=== PATIENT | male | born 1950 | race Caucasian/White ===

== ENCOUNTER 2021-09-29 13:46 | Inpatient (IN) ==
[2021-09-29] MEDS ORDERED: Ondansetron 4 mg VIAL 2 MG/ML 2 ml VIAL IV ONE (13:57)
[2021-09-29] MEDS ORDERED: Lactated Ringers 1000 ml BAG 1,000 ML IV ONE ×2 (13:57→14:34)
[2021-09-29] MEDS ORDERED: Morphine 4 MG/ML VIAL (1 ml) IV ONE ×2 (13:58→15:46)
[2021-09-29 14:13] LABS: ABS Lymphocytes 0.7 10^3/ul (1.0-4.8); ABS Neutrophils 10.8 10^3/ul (1.5-7.7); Eosinophil % 0.4 %; Hematocrit 41 % (42-52); Hemoglobin 13.8 g/dL (14.0-18.0); Lymphocyte % 5.5 %; Mean Corpuscular HGB Conc 34 g/dL (31-36); Mean Corpuscular Hemoglobin 32 pg (27-31); Mean Corpuscular Volume 94 fL (80-94); Mean Platelet Volume 8.6 fL (7.4-10.4); Platelet Count 272 10^3/uL (150-450); Red Blood Count 4.32 10^6 /uL (4.18-5.48); Red Cell Distribution Width 14 % (10-15); White Blood Count 12.5 10^3/uL (3.5-10.8)
[2021-09-29 15:03] LABS: INR 1.21 (0.86-1.15)
[2021-09-29 15:10] LABS: Urine Appearance Cloudy; Urine Bilirubin Negative (Negative); Urine Blood Negative (Negative); Urine Color Yellow; Urine Glucose 1+(50 mg/dL) (Negative); Urine Ketones 1+ (Negative); Urine Nitrite Negative (Negative); Urine Protein Negative (Negative); Urine Specific Gravity 1.013 (1.002-1.030); Urine Urobilinogen Negative (Negative)
[2021-09-29 15:24] LABS: Albumin 4.4 g/dL (3.2-5.2); Albumin/Globulin Ratio 1.6 (1-3); C Reactive Protein 31.24 mg/L (<8.01); Calcium 10.3 mg/dL (8.6-10.3); Globulin 2.8 g/dL (2-4); Magnesium 1.9 mg/dL (1.9-2.7); Potassium 3.6 mmol/L (3.5-5.0); Total Bilirubin 0.9 mg/dL (0.2-1.0); Total Protein 7.2 g/dL (6.4-8.9); eGFR CKD-EPI 92.5 (>60)
[2021-09-29 15:42] LABS: High Sensitivity Troponin 1 Hr 17 pg/mL (<20)
[2021-09-29] MEDS ORDERED: Midazolam 2 mg/2 ml VIAL 1 mg/ml 2 ml VIAL (2 mg) ONE (16:20)
[2021-09-29] MEDS ORDERED: Rocuronium 50 mg VIAL 10 mg/ml 5 ml VIAL (50 mg) ONE ×2 (16:20→19:28)
[2021-09-29] MEDS ORDERED: fentaNYL 100 mcg/2 ml 50 MCG/ML VIAL ONE ×5 (16:20→20:40)
[2021-09-29] MEDS ORDERED: Succinylcholine 200 mg VIAL 20 mg/ml 10 ml VIAL (200 mg) ONE (16:20)
[2021-09-29] MEDS ORDERED: Phenylephrine IV 10 MG/ML 1 ml VIAL ONE (16:21)
[2021-09-29] MEDS ORDERED: Etomidate 20 mg/10 ml 2 MG/ML 10 ml VIAL ONE (16:27)
[2021-09-29] MEDS ORDERED: Lidocaine 1% MPF 5 ML VIAL ONE (16:31)
[2021-09-29] MEDS ORDERED: Bupivacaine 0.25% w/EPI 10 ML SDV ONE (16:51)
[2021-09-29] MEDS ORDERED: Sodium Citrate/Citric Acid LIQ 15 ML UDC ONE (17:10)
[2021-09-29] MEDS ORDERED: ceFOXitin 2 GM IVPREMIX 2 GM/50 ML BAG ONE (17:14)
[2021-09-29] MEDS ORDERED: Acetaminophen IV 1 GM/100ML 100 ML IV ONE (17:16)
[2021-09-29] MEDS ORDERED: fentaNYL 100 mcg/2 ml 50 MCG/ML VIAL IV PRN (17:16)
[2021-09-29] MEDS ORDERED: Morphine 4 MG/ML VIAL (1 ml) IV PRN ×2 (17:16→19:03)
[2021-09-29] MEDS ORDERED: Naloxone 0.4 mg VIAL 0.4 mg/ml 1 ml VIAL IV PRN ×2 (17:16→19:03)
[2021-09-29] MEDS ORDERED: Prochlorperazine 5 mg/ml 2 ml VIAL (10 mg) IV PRN ×2 (17:16→19:03)
[2021-09-29] MEDS ORDERED: Prothrombin Complex Conc. DOSE = Units Factor IX (nine) IV SLOW PU ONE ×2 (17:45→18:45)
[2021-09-29] MEDS ORDERED: Propofol 10 MG/ML 20 ML BTL ONE (18:07)
[2021-09-29] MEDS ORDERED: Metoprolol Tartrate 5 mg VIAL 5 ml VIAL (1 mg/ml) ONE (19:22)
[2021-09-29] MEDS ORDERED: Ondansetron 4 mg VIAL 2 MG/ML 2 ml VIAL ONE (19:35)
[2021-09-29] MEDS ORDERED: Sugammadex 500 MG/5 ML 5 ml VIAL IV PUSH ONE (19:37)
[2021-09-29] MEDS ORDERED: Ondansetron 4 mg VIAL 2 MG/ML 2 ml VIAL IV PRN (19:52)
[2021-09-29] MEDS ORDERED: Naloxone 0.4 mg VIAL 0.4 mg/ml 1 ml VIAL IV PUSH PRN (20:07)
[2021-09-29] MEDS: fentaNYL 100 mcg/2 ml 50 MCG/ML VIAL IV PRN ×4 (20:23→20:52)
[2021-09-29] MEDS ORDERED: HYDROmorphone PCA 20 MG/20 ML PCA.SYRING PCA SCH (21:00)
[2021-09-29] MEDS ORDERED: ceFOXitin 2 GM IVPREMIX 2 GM/50 ML BAG IVPB SCH (21:00)
[2021-09-29 22:53] LABS: Hematocrit 35 % (42-52); Hemoglobin 11.7 g/dL (14.0-18.0)
[2021-09-29] MEDS: Lactated Ringers 1000 ml BAG 1,000 ML IV SCH (22:53)
[2021-09-29 22:58] LABS: Urine Appearance Cloudy; Urine Bilirubin Negative (Negative); Urine Blood 3+ (Negative); Urine Color Amber; Urine Glucose 1+(50 mg/dL) (Negative); Urine Ketones Trace (Negative); Urine Nitrite Negative (Negative); Urine Protein 2+(100 mg/dL) (Negative); Urine Specific Gravity 1.025 (1.002-1.030); Urine Urobilinogen Negative (Negative)
[2021-09-29 23:09] LABS: Urine Bacteria Absent (Absent); Urine Red Blood Cell 3+(>10/hpf) (Absent); Urine White Blood Cell Trace(0-5/hpf) (Absent)
[2021-09-29 23:20] LABS: Calcium 8.5 mg/dL (8.6-10.3); Magnesium 1.6 mg/dL (1.9-2.7); Potassium 4.4 mmol/L (3.5-5.0); eGFR CKD-EPI 96.7 (>60)
[2021-09-30] MEDS ORDERED: Magnesium Sulf 4 GM/100 ML IV 4,000 MG/100 ML BAG IVPB ONE (02:24)
[2021-09-30] MEDS: ceFOXitin 2 GM IVPREMIX 2 GM/50 ML BAG IVPB SCH ×3 (03:28→18:40)
[2021-09-30] MEDS ORDERED: Midazolam 5 mg/5 ml VIAL 1 mg/ml 5 ml VIAL (5 mg) IV SLOW PU ONE (03:32)
[2021-09-30] MEDS ORDERED: fentaNYL 100 mcg/2 ml 50 MCG/ML VIAL IV SLOW PU ONE (03:33)
[2021-09-30 06:06] LABS: ABS Eosinophils 0.1 10^3/ul (0-0.6); ABS Lymphocytes 0.8 10^3/ul (1.0-4.8); ABS Monocytes 1.3 10^3/ul (0-0.8); ABS Neutrophils 9.8 10^3/ul (1.5-7.7); Eosinophil % 0.9 %; Hematocrit 31 % (42-52); Hemoglobin 10.4 g/dL (14.0-18.0); Lymphocyte % 6.6 %; Mean Corpuscular HGB Conc 34 g/dL (31-36); Mean Corpuscular Hemoglobin 32 pg (27-31); Mean Corpuscular Volume 95 fL (80-94); Mean Platelet Volume 8.6 fL (7.4-10.4); Platelet Count 196 10^3/uL (150-450); Red Blood Count 3.23 10^6 /uL (4.18-5.48); Red Cell Distribution Width 14 % (10-15)
[2021-09-30 06:51] LABS: Calcium 8.2 mg/dL (8.6-10.3); Potassium 4.1 mmol/L (3.5-5.0); eGFR CKD-EPI 92.8 (>60)
[2021-09-30] MEDS: Pantoprazole VIAL 40 MG VIAL IV SCH (08:20)
[2021-09-30] MEDS: Lactated Ringers 1000 ml BAG 1,000 ML IV SCH ×2 (09:44→19:39)
[2021-10-01] MEDS ORDERED: Lactated Ringers 1000 ml BAG 1,000 ML IV SCH (02:51)
[2021-10-01 06:22] LABS: ABS Eosinophils 0.1 10^3/ul (0-0.6); ABS Lymphocytes 0.6 10^3/ul (1.0-4.8); ABS Monocytes 1.2 10^3/ul (0-0.8); ABS Neutrophils 9.2 10^3/ul (1.5-7.7); Eosinophil % 0.6 %; Hematocrit 30 % (42-52); Hemoglobin 10.3 g/dL (14.0-18.0); Lymphocyte % 5.3 %; Mean Corpuscular HGB Conc 34 g/dL (31-36); Mean Corpuscular Hemoglobin 32 pg (27-31); Mean Corpuscular Volume 94 fL (80-94); Mean Platelet Volume 8.7 fL (7.4-10.4); Platelet Count 201 10^3/uL (150-450); Red Blood Count 3.21 10^6 /uL (4.18-5.48); Red Cell Distribution Width 14 % (10-15); White Blood Count 11.1 10^3/uL (3.5-10.8)
[2021-10-01 06:44] LABS: Calcium 8.5 mg/dL (8.6-10.3); Potassium 4.2 mmol/L (3.5-5.0); eGFR CKD-EPI 95.2 (>60)
[2021-10-01] MEDS: Pantoprazole VIAL 40 MG VIAL IV SCH (10:22)
[2021-10-01] MEDS: D5W 1/2 NS KCl 20 meq 1000 ml 1,000 ML IV SCH (11:46)
[2021-10-02] MEDS: D5W 1/2 NS KCl 20 meq 1000 ml 1,000 ML IV SCH (00:02)
[2021-10-02 05:15] LABS: Hematocrit 32 % (42-52); Hemoglobin 10.9 g/dL (14.0-18.0); Mean Corpuscular HGB Conc 34 g/dL (31-36); Mean Corpuscular Hemoglobin 33 pg (27-31); Mean Corpuscular Volume 95 fL (80-94); Mean Platelet Volume 8.7 fL (7.4-10.4); Platelet Count 196 10^3/uL (150-450); Red Blood Count 3.32 10^6 /uL (4.18-5.48); Red Cell Distribution Width 14 % (10-15); White Blood Count 8.3 10^3/uL (3.5-10.8)
[2021-10-02 05:36] LABS: Potassium 4.1 mmol/L (3.5-5.0); eGFR CKD-EPI 95.9 (>60)
[2021-10-02] MEDS ORDERED: D5W 1/2 NS KCl 20 meq 1000 ml 1,000 ML IV SCH (07:47)
[2021-10-02] MEDS: oxyCODONE/Acetamin 5/325 mg TAB PO PRN ×3 (08:51→21:15)
[2021-10-02] MEDS ORDERED: HYDROmorphone 0.5 MG/0.5 ML SYRINGE IV SLOW PU PRN (11:30)
[2021-10-02] MEDS ORDERED: HYDROmorphone 1 MG/1 ML SYRINGE IV SLOW PU PRN (11:30)
[2021-10-03] MEDS: oxyCODONE/Acetamin 5/325 mg TAB PO PRN ×2 (05:26→09:27)
[2021-10-03 15:27] VITALS: BP 163/83
== END 2021-10-03 16:40 | disposition home or self-care (01) | DRG 329 ==
LOC: ED 13:46 → SDS 17:39 → SUATTDRO 21:27 → ICU 21:27 → SSU 09-30 15:12
PROVIDERS: ADMIT Surgery; ATTEND Surgery